=== PATIENT | female | born 2000 | race Hispanic/Latino ===

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

== ENCOUNTER → 2023-09-04 | Emergency (ER) | payer OTHER ==
--- OUTSIDE RECORDS SUMMARY | 2023-09-04 14:47 | XMS REPORT | Continuity of Care Document ---
Author Name Unknown Address [address] [place] [address] [facility]connect Address [address] [place] [address] Care Team Providers Care Custom Ski Maker Name Role Phone Kizzy Gustafson MD Primary Care Physician Unavailable CHETAN MIGUEL Attending Clinician Unavailable FANTA TAYLOR Attending Clinician Unavailab le Doctor Unassigned, [place] Attending Clinician U SOPHIA Moraes Attending Clinician Unavailable Chetan Miguel MD Attending Clinician [phone] Sophia Curtis PA-C Attending Clinician [phone] Pcp, Patient Does Not Have A Attending Clinician Usman Sanchez DO Attending Clinician [phone] Kizzy Gustafson MD Attending Clinician +- [phone] Payers Payer Name Policy Type Policy Number Effective Date Expirati on Date Source [facility] ON 9 [id number] 2023 00:00:00 Problems Condition Name Condition Details Condition Category Status Onset Date Resolution Date Last Treatment Date Treating Clinician Comments Source Obesity (BMI 30-39.9) Obesity (BMI 30-39.9) Disease Active 2018-07 00:00: 00 [facility] No known active problems No known active problems Disease [facility] Allergies, Adverse Reactions, Alerts Allergy Name Allergy Type Status Severity Reaction(s) Onset Date Inactive Date Treating Clinician Comments Source NO KNOWN ALLERGIE S Drug Class Active [facility] Social History Social Habit Start Date Stop Date Quantity Comments Source Gender identity [facility] to SARS-CoV-2 (event) 2023-01-01 00:00:00 2023-01-11 14:07:00 Not sure [facility] History of Social function 2023-01-11 00:00:00 2023-01-11 00:00:00 [facility] Alcohol Comment 2023-01-04 00:00:00 2023-01-04 00:00:00 social [facility] Alcohol intake 2019-05-24 00:00:00 2019-05-24 00:00:00 Current non-drinker of alcohol (finding) [facility] Tobacco use and exposure 2017-12-13 00:00:00 2017-12-13 00:00:00 Smokeless tobacco non-user [facility] Sex Assigned At 2000 00:00:00 2000 00:00:00 [facility] Smoking Status Start Date Stop Date Source Never smoked tobacco [facility] Medications Ordered Medication Name Filled Medication Name Start Date Stop Date Current Medication? Ordering Clinician Indication Dosage Frequency Signature (SIG) Comments Components Source pumpkin seed extract/soy germ (AZO BLADDER CONTROL ORAL) 01-11 17:55: 12 01-11 00:00 :00 No Take by mouth daily. [facility] pumpkin seed extract/soy germ (AZO BLADDER CONTROL ORAL) 01-11 17:55: 12 01-11 00:00 :00 No Take by mouth daily. [facility] pumpkin seed extract/soy germ (AZO BLADDER CONTROL ORAL) 01-11 17:55: 12 01-11 00:00 :00 No Take by mouth daily. [facility] Lactobacill us acidophilus (PROBIOTIC ORAL) 01-04 09:48: 00 Yes Take by mouth. [facility] Lactobacill us acidophilus (PROBIOTIC ORAL) 0 01-04 09:48: 00 Yes Take by mouth. [facility] Lactobacill us acidophilus (PROBIOTIC ORAL) 0 01-04 09:48: 00 Yes Take by mouth. [facility] pumpkin seed extract/soy germ (AZO BLADDER CONTROL ORAL) 0 01-04 09:48: 00 Yes Take by mouth daily. [facility] Lactobacill us acidophilus (PROBIOTIC ORAL) 0 01-04 09:48: 00 Yes Take by mouth. [facility] pumpkin seed extract/soy germ (AZO BLADDER CONTROL ORAL) 0 01-04 09:48: 00 Yes Take by mouth daily. [facility] Lactobacill us acidophilus (PROBIOTIC ORAL) 0 01-04 09:48: 00 Yes Take by mouth. [facility] Lactobacill us acidophilus (PROBIOTIC ORAL) 0 01-04 09:48: 00 Yes Take by mouth. [facility] Lactobacill us acidophilus (PROBIOTIC ORAL) 0 01-04 09:48: 00 Yes Take by mouth. [facility] Lactobacill us acidophilus (PROBIOTIC ORAL) 0 01-04 09:48: 00 Yes Take by mouth. [facility] pumpkin seed extract/soy germ (AZO BLADDER CONTROL ORAL) 2018-07 17:52: 00 Yes Take by mouth daily. [facility] ascorbic acid/vitami n E/biotin (HAIR, SKIN, NAILS WITH BIOTIN ORAL) 2018-07 17:35: 41 Yes Take by mouth. [facility] ascorbic acid/vitami n E/biotin (HAIR, SKIN, NAILS WITH BIOTIN ORAL) 2018-07 11:35: 41 Yes Take by mouth. [facility] ascorbic acid/vitami n E/biotin (HAIR, SKIN, NAILS WITH BIOTIN ORAL) 2018-07 11:35: 41 Yes Take by mouth. [facility] ascorbic acid/vitami n E/biotin (HAIR, SKIN, NAILS WITH BIOTIN ORAL) 2018-07 11:35: 41 Yes Take by mouth. [facility] ascorbic acid/vitami n E/biotin (HAIR, SKIN, NAILS WITH BIOTIN ORAL) 2018-07 11:35: 41 Yes Take by mouth. [facility] ascorbic acid/vitami n E/biotin (HAIR, SKIN, NAILS WITH BIOTIN ORAL) 2018-07 11:35: 41 Yes Take by mouth. [facility] ascorbic acid/vitami n E/biotin (HAIR, SKIN, NAILS WITH BIOTIN ORAL) 2018-07 11:35: 41 Yes Take by mouth. [facility] ascorbic acid/vitami n E/biotin (HAIR, SKIN, NAILS WITH BIOTIN ORAL) 2018-07 11:35: 41 Yes Take by mouth. [facility] ascorbic acid/vitami n E/biotin (HAIR, SKIN, NAILS WITH BIOTIN ORAL) 2018-07 11:35: 41 Yes Take by mouth. [facility] ascorbic acid/vitami n E/biotin (HAIR, SKIN, NAILS WITH BIOTIN ORAL) 2018-07 11:35: 41 Yes Take by mouth. [facility] metroNIDAZO LE 500 mg tablet 11-16 00:00: 00 Yes [id number] 500mg Take 1 tablet by mouth every 12 (twelve) hours. [facility] ascorbic acid/vitami n E/biotin (HAIR, SKIN, NAILS WITH BIOTIN ORAL) 11-15 17:49: 45 Yes Take by mouth. [facility] Immunizations Ordered Immunization Name Filled Immunization Name Date Status Comments Source Influenza Virus Vaccine Quad .5 mL IM 6+ MO 2019-05-24 00:00:00 Completed [facility] Influenza Virus Vaccine Quad .5 mL IM 6+ MO 2019-05-24 00:00:00 Completed [facility] Influenza Virus Vaccine Quad .5 mL IM 6+ MO 2019-05-24 00:00:00 Completed [facility] Influenza Virus Vaccine Quad .5 mL IM 6+ MO 2019-05-24 00:00:00 Completed [facility] Influenza Virus Vaccine Quad .5 mL IM 6+ MO 2019-05-24 00:00:00 Completed [facility] Influenza Virus Vaccine Quad .5 mL IM 6+ MO 2019-05-24 00:00:[address] [facility] 2018-02-14 00:00:00 Completed [place] [address] 2018-02-14 00:00:00 Completed [place] [address] 2018-02-14 00:00:00 Completed [place] [address] 2018-02-14 00:00:00 Completed [place] [address] 2018-02-14 00:00:00 Completed [place] [address] 2018-02-14 00:00:00 Completed [place] [address] 2018-02-14 00:00:00 Completed [facility] Meningococcal Polysaccharide (groups A, C, Y and W-135) conjugate vaccine (MCV4P) 2017-12-13 00:00:00 Completed [place] [address] 2017-12-13 00:00:00 Completed [facility] Meningococcal Polysaccharide (groups A, C, Y and W-135) conjugate vaccine (MCV4P) 2017-12-13 00:00:[address] [facility] 2017-12-13 00:00:00 Completed [facility] Meningococcal Polysaccharide (groups A, C, Y and W-135) conjugate vaccine (MCV4P) 2017-12-13 00:00:[address] [facility] 2017-12-13 00:00:00 Completed [facility] Meningococcal Polysaccharide (groups A, C, Y and W-135) conjugate vaccine (MCV4P) 2017-12-13 00:00:[address] [facility] 2017-12-13 00:00:00 Completed [facility] Meningococcal Polysaccharide (groups A, C, Y and W-135) conjugate vaccine (MCV4P) 2017-12-13 00:00:00 Completed [facility] Meningococcal Polysaccharide (groups A, C, Y and W-135) conjugate vaccine (MCV4P) 2017-12-13 00:00:[address] [facility] 2017-12-13 00:00:00 Completed [place] [address] 2017-12-13 00:00:00 Completed [facility] Meningococcal Polysaccharide (groups A, C, Y and W-135) conjugate vaccine (MCV4P) 2017-12-13 00:00:00 Completed [facility] HPV9 2017-12-13 00:00:00 Completed [facility] Meningococcal Polysaccharide (groups A, C, Y and W-135) conjugate vaccine (MCV4P) Unknown Completed [facility] HPV9 Unknown Completed [facility] HPV9 Unknown Completed [facility] Influenza Virus Vaccine Quad .5 mL IM 6+ MO (FLUZONE/FLULAVAL/FL UARIX) Unknown Completed [facility] Meningococcal Polysaccharide (groups A, C, Y and W-135) conjugate vaccine (MCV4P) Unknown Completed [facility] HPV9 Unknown Completed [facility] HPV9 Unknown Completed [facility] Influenza Virus Vaccine Quad .5 mL IM 6+ MO (FLUZONE/FLULAVAL/FL UARIX) Unknown Completed [facility] Meningococcal Polysaccharide (groups A, C, Y and W-135) conjugate vaccine (MCV4P) Unknown Completed [facility] HPV9 Unknown Completed [facility] HPV9 Unknown Completed [facility] Influenza Virus Vaccine Quad .5 mL IM 6+ MO (FLUZONE/FLULAVAL/FL UARIX) Unknown Completed [facility] Meningococcal Polysaccharide (groups A, C, Y and W-135) conjugate vaccine (MCV4P) Unknown Completed [facility] HPV9 Unknown Completed [facility] HPV9 Unknown Completed [facility] Influenza Virus Vaccine Quad .5 mL IM 6+ MO (FLUZONE/FLULAVAL/FL UARIX) Unknown Completed [facility] Vital Signs Vital Name Observation Time Observation Value Comments S ource Systolic blood pressure 2023-01-11 19:54:00 122 mm[Hg] [facility] Diastolic blood pressure 2023-01-11 19:54:00 69 mm[Hg] [facility] Heart rate 2023-01-11 19:54:00 70 /min [facility] Body temperature 2023-01-11 19:54:00 36.61 Rosalie [facility] Respiratory rate 2023-01-11 19:54:00 18 /min [facility] Body height 2023-01-11 19:54:00 170.2 cm [facility] Body weight 2023-01-11 19:54:00 81.647 kg [facility] BMI 2023-01-11 19:54:00 28.19 kg/m2 [facility] Oxygen saturation in Arterial blood by Pulse oximetry 2023-01-11 19:54:00 98 /min [facility] Body weight 2023-01-04 14:39:00 82.192 kg [facility] BMI 2023-01-04 14:39:00 28.38 kg/m2 [facility] Systolic blood pressure 2023-01-04 14:39:00 111 mm[Hg] [facility] Diastolic blood pressure 2023-01-04 14:39:00 79 mm[Hg] [facility] Heart rate 2023-01-04 14:39:00 71 /min [facility] Body temperature 2023-01-04 14:39:00 36.72 Rosalie [facility] Respiratory rate 2023-01-04 14:39:00 18 /min [facility] Body height 2023-01-04 14:39:00 170.2 cm [facility] Procedures Procedure Date / Time Performed Performing Clinicia n Source DISCLOSURE AND CONSENT, MEDICAL AND SURGICAL PROCEDURES 2023-01-11 05:01:00 Doctor Unassigned, [place] [facility] Encounters Start Date/Time End Date/Time Encounter Type Admission Type Attending Clinicians Care Facility Care Department Encounter ID Source 2023-09-16 15:00:00 2023-09-16 15:00:00 Outpatient FANTA TAYLOR [id number] Eula Smith 2023-02-06 00:00:00 2023-02-06 00:00:00 Patient Secure Msg Doctor Unassigned, [place] [facility] [id number] [id number] [id number] [id number] [facility] [id number] [facility] 2023-01-11 14:30:00 2023-01-11 15:25:28 Outpatient SOPHIA BARAHONA [facility] [id number] [facility] 2023-01-11 14:30:00 2023-01-11 15:25:28 Office Visit Chetan Miguel [facility] [id number] [id number] [id number] [id number] [facility] 2023-01-11 00:00:00 2023-01-11 00:00:00 Orders Only Doctor Unassigned, [place] [facility] [id number] 350.1.13.10 [id number] [id number] [facility] 2023-01-06 00:00:00 2023-01-06 00:00:00 Patient Secure Msg Pcp, Patient Does Not Have A [facility] [id number] 350.1.13.10 4.2.7.2.686 [id number] [facility] 2023-01-06 00:00:00 2023-01-06 00:00:00 Patient Secure Msg Pcp, Patient Does Not Have A [facility] [id number] 350.1.13.10 [id number] [id number] [facility] 2023-01-04 09:30:00 2023-01-04 10:08:25 Outpatient Danny CURTIS SOPHIA [facility] [id number] [facility] 2023-01-04 09:30:00 2023-01-04 10:08:25 Office Visit Sophia Curtis [facility] [id number] 350.1.13.10 4.2.7.2.686 [id number] [facility] 2020-10-01 00:00:00 2020-10-01 00:00:00 Patient Outreach Usman Sanchez [facility] 1.840.114 350.1.13.10 4.2.7.2.686 [id number] [facility] 2020-07-30 00:00:00 2020-07-30 00:00:00 Patient Secure Msg Chetan Miguel [facility] 1.840.114 350.1.13.10 4.2.7.2.686 [id number] [facility] 2019-03-01 00:00:00 2019-03-01 00:00:00 Telephone Kizzy Woodall [facility] 1.840.114 350.1.13.10 4.2.7.2.686 [id number] [facility]
[2023-09-04 16:53] LABS: Hematocrit 36.5 % (36.0-45.0); Platelets 225 thou/uL (152-406); RBC Red Blood Cell Count 3.97 M/uL (3.86-4.86)
--- NOTE | 2023-09-04 16:53 | RAD REPORT ---
EXAM DESCRIPTION: US - Transvaginal OB - 09/04/2023 4:09 pm CLINICAL HISTORY: Abd cramping, ;Vaginal bleeding COMPARISON: No comparisons TECHNIQUE: Sonographic grayscale and color flow images of a first-trimester were obtained through transvaginal approach. FINDINGS: A single live intrauterine is identified. heart rate: 113 BPM. [place]-rump length measures 5.8 millimeters, corresponding to gestational age of 6 weeks, 3 days. Normal yolk sac is visualized. Heterogeneous crescentic hypoechoic collection seen adjacent to the decidual on the left measuring 2. 3 x 2.1 x 0.7 cm. Maternal ovaries are visualized, with a dominant thin-walled anechoic left ovarian cyst measuring 4.0 x 3.0 x 3.7 cm. No other suspicious adnexal. No free fluid. IMPRESSION: 1. Single live intrauterine . 2. Calculated gestational age: 6 weeks, 3 days. Estimated due date by ultrasound: 04/25/2024. 3. Crescentic heterogeneous collection on the left aspect of the decidua, measuring 2.3 cm in greates t dimension, suggestive of a subchorionic hemorrhage. Close clinical follow-up, and short-term sonogr aphic revaluation in 7-10 days are recommended. 4. Probable corpus luteum cyst on the left measuring up to 4 cm.
[2023-09-04 16:54] LABS: Specific Gravity 1.008 (1.005-1.030); Urine Bacteria <20 /HPF (<20); Urine Bilirubin NEGATIVE (Negative); Urine Blood 1+ (Negative); Urine Clarity Extremely Turbid (Clear); Urine Color Colorless (Yellow); Urine Glucose NEGATIVE (Negative); Urine Protein NEGATIVE (Negative); Urine RBC <5 /HPF (None Seen); Urine Urobilinogen Normal (Normal); Urine pH 6.5 (5.0-7.0)
[2023-09-04 17:17] LABS: Potassium 3.6 mEq/L (3.5-5.1)
--- NOTE | 2023-09-04 17:22 | ER ---
Nurse's Notes [facility] Name: Deepa Greer Age: 22 yrs Sex: Female : 2000 Arrival Date: 09/04/2023 Time: 14:44 Bed 8 Private MD: Diagnosis: Threatened ;Subchorionic hemorrhage Presentation: 09/04 14:57 Chief complaint: Patient states: Vaginal bleeding onset Wednesday. Pt states that it cm10 has been light red and bright red at times. Pt states that she is approximately 6 weeks . Pt reports left sided back pain and some abdominal cramping. Coronavirus screen: Vaccine status: Patient reports being unvaccinated. Client denies travel out of the [place] in the last 14 days. Ebola Screen: Patient denies travel to an Ebola-affected area in the 21 days before illness onset. No symptoms or risks identified at this time. Initial Sepsis Screen: Does the patient meet any 2 criteria? No. Patient's initial sepsis screen is negative. Does the patient have a suspected source of infection? No. Patient's initial sepsis screen is negative. Risk Assessment: Do you want to hurt yourself or someone else? Patient reports no desire to harm self or others. Onset of symptoms was September 04, 2023. 14:57 Method Of Arrival: Ambulatory cm10 14:57 Acuity: ROULA 3 cm10 Triage Assessment: 17:50 General: Appears in no apparent distress. Behavior is calm, cooperative, appropriate cp4 for age. 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 - Social history:: Smoking status: Patient/guardian denies using tobacco. Screenin:48 [facility] ED Fall Risk Assessment (Adult) History of falling in the last 3 months, cp4 including since admission No falls in past 3 months (0 pts) Confusion or Disorientation No (0 pts) Intoxicated or Sedated No (0 pts) Impaired Gait No (0 pts) Mobility Assist Device Used No (0 pt) Altered Elimination No (0 pt) Score/Fall Risk Level 0 - 2 = Low Risk Oriented to surroundings, Maintained a safe environment, Educated pt \T\ family on fall prevention, incl call for assistance when getting out of bed, Assessed \T\ reinforced patient's understanding of fall precautions, Hourly rounding (assess needs \T\ fall precautionary measures) done. Abuse screen: Denies threats or abuse. Nutritional screening: No deficits noted. Tuberculosis screening: No symptoms or risk factors identified. Assessment: 16:20 General: Appears comfortable, Behavior is calm, cooperative. Pain: Denies pain. Neuro: aa5 Level of Consciousness is awake, alert, obeys commands, Oriented to person, place, time, situation. Cardiovascular: Patient's skin is warm and dry. Respiratory: Airway is patent Respiratory effort is even, unlabored, Respiratory pattern is regular, symmetrical. GI: Patient currently denies abdominal pain, nausea, vomiting. : No signs and/or symptoms were reported regarding the genitourinary system. Reports vaginal bleeding that is light flow, Denies burning with urination, pain. EENT: No signs and/or symptoms were reported regarding the EENT system. Derm: No signs and/or symptoms reported regarding the dermatologic system. Musculoskeletal: Range of motion: intact in all extremities. 17:48 Obstetrical Assessment: General assessment: awake and alert, skin warm and dry. Pain: cp4 Denies pain. : Denies pain. Vital Signs: 14:57 BP 110 / 65; Pulse 81; Resp 16; Temp 98.2; Pulse Ox 99% on R/A; Weight 86.64 kg (R); cm10 Height 5 ft. 7 in. ; Pain 7/10; 14:57 Body Mass Index 29.91 (86.64 kg, 170.18 cm) cm10 14:57 Pain Scale: Adult cm10 ED Course: 14:47 Patient arrived in ED. mr 14:49 [facility] 14:49 Nathaniel Cohn MD is Attending Physician. [facility] 14:59 Triage completed. cm10 15:00 Arm band placed on Patient placed in an exam room, on a stretcher. cm10 16:11 US Transvaginal Ob In Process Unspecified. EDMS 16:14 Barbi Sidhu, RN is Primary Nurse. aa5 16:43 Initial lab(s) drawn, by ED staff, sent to lab. Inserted saline lock: 20 gauge in right aa5 antecubital area, using aseptic technique. Blood collected. IV inserted by Kayleigh Moss RN. 17:48 Bed in low position. Call light in reach. Side rails up X 1. Provided Education on: cp4 threatened miscarriage. 17:48 No provider procedures requiring assistance completed. cp4 17:48 intact, bleeding controlled, No redness/swelling at site. Pressure dressing applied. cp4 Administered Medications: No medications were administered Medication: 17:48 VIS not applicable for this client. cp4 Outcome: 17:21 Discharge ordered by . dar 17:48 Discharged to home ambulatory, cp4 17:48 Condition: stable 17:48 Discharge instructions given to patient, Instructed on discharge instructions, follow up and referral plans. Demonstrated understanding of instructions, follow-up care, 17:51 Patient left the ED. cp4 Signatures: Dispatcher [employer] EDVT Anika Alcazar, Reg Reg mr Barbi Sidhu, RN RN aa5 Luz Marina Portillo, OIM ARCHITECT OIM ARCHITECT Jessie Meier, RN RN Kayleigh Ni cp4
--- NOTE | 2023-09-04 17:22 | EDPHYS ---
Physician Documentation [facility] Name: Deepa Greer Age: 22 yrs Sex: Female : 2000 Arrival Date: 09/04/2023 Time: 14:44 Bed 8 Private MD: ED Physician Nathaniel Cohn HPI: 09/04 14:50 This 22 yrs old Female presents to ER via Ambulatory with complaints of jh7 Vaginal Bleeding, + Preg <12wks. 14:50 The patient presents to the emergency department with vaginal bleeding, described as jh7 spotting. The estimated gestational age is 6 weeks. Previous pregnancies: the patient has never been . Associated signs and symptoms: The patient has no apparent associated signs or symptoms. 22-year-old female reports spotting for the past 3 days. Denies any other symptoms. She states that she believes she is 6 weeks and 4 days . Has not had a confirmation via ultrasound yet.. 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 - Social history:: Smoking status: Patient/guardian denies using tobacco. ROS: 14:50 Constitutional: Negative for fever, chills, and weight loss, Eyes: Negative for injury, jh7 pain, redness, and discharge, Neck: Negative for injury, pain, and swelling, Cardiovascular: Negative for chest pain, palpitations, and edema, Respiratory: Negative for shortness of breath, cough, wheezing, and pleuritic chest pain, Abdomen/GI: Negative for abdominal pain, nausea, vomiting, diarrhea, and constipation, MS/Extremity: Negative for injury and deformity, Skin: Negative for injury, rash, and discoloration, Neuro: Negative for headache, weakness, numbness, tingling, and seizure, 14:50 : Positive for vaginal bleeding, 14:50 All other systems are negative, Exam: 14:50 Constitutional: This is a well developed, well nourished patient who is awake, alert, jh7 and in no acute distress. Head/Face: Normocephalic, atraumatic. Eyes: Pupils equal round and reactive to light, extra-ocular motions intact. Lids and lashes normal. Conjunctiva and sclera are non-icteric and not injected. Cornea within normal limits. Periorbital areas with no swelling, redness, or edema. Neck: Trachea midline, no thyromegaly or masses palpated, and no cervical lymphadenopathy. Supple, full range of motion without nuchal rigidity, or vertebral point tenderness. No Meningismus. Cardiovascular: Regular rate and rhythm with a normal S1 and S2. No gallops, murmurs, or rubs. Normal PMI, no JVD. No pulse deficits. Respiratory: Lungs have equal breath sounds bilaterally, clear to auscultation and percussion. No rales, rhonchi or wheezes noted. No increased work of breathing, no retractions or nasal flaring. Abdomen/GI: Soft, non-tender, with normal bowel sounds. No distension or tympany. No guarding or rebound. No evidence of tenderness throughout. Skin: Warm, dry with normal turgor. Normal color with no rashes, no lesions, and no evidence of cellulitis. MS/ Extremity: Pulses equal, no cyanosis. Neurovascular intact. Full, normal range of motion. Neuro: Awake and alert, GCS 15, oriented to person, place, time, and situation. Motor strength 5/5 in all extremities. Sensory grossly intact. Cerebellar exam normal. Normal gait. Vital Signs: 14:57 BP 110 / 65; Pulse 81; Resp 16; Temp 98.2; Pulse Ox 99% on R/A; Weight 86.64 kg (R); cm10 Height 5 ft. 7 in. ; Pain 7/10; 14:57 Body Mass Index 29.91 (86.64 kg, 170.18 cm) cm10 14:57 Pain Scale: Adult cm10 MDM: 14:49 Patient medically screened. [facility] 17:20 Differential diagnosis: threatened Ab, Subchorionic hemorrhage, ectopic . Data [facility] reviewed: vital signs, nurses notes, lab test result(s), radiologic studies, ultrasound. Counseling: I had a detailed discussion with the patient and/or guardian regarding the historical points, exam findings, and any diagnostic results supporting the discharge/admit diagnosis, the need for outpatient follow up, an OB/Gyne specialist, to return to the emergency department if symptoms worsen or persist or if there are any questions or concerns that arise at home. 09/04 14:56 Order name: Basic Metabolic Panel [facility] 09/04 14:56 Order name: CBC with Diff; Complete Time: 17:18 [facility] 09/04 14:56 Order name: Quantitative Hcg [facility] 09/04 14:56 Order name: Urinalysis w/ reflexes; Complete Time: 17:18 [facility] 09/04 14:56 Order name: US Transvaginal Ob; Complete Time: 16:54 [facility] 09/04 14:56 Order name: IV Saline Lock; Complete Time: 16:44 [facility] 09/04 14:56 Order name: Labs collected and sent; Complete Time: 16:44 [facility] 09/04 14:56 Order name: NPO; Complete Time: 16:44 [facility] Administered Medications: No medications were administered Disposition: 19:19 Co-signature as Attending Physician, Nathaniel Cohn MD I agree with the assessment and kdr plan of care. Disposition Summary: 09/04/23 17:21 Discharge Ordered Notes: Location: Home [facility] Problem: new [facility] Symptoms: are unchanged [facility] Condition: Stable [facility] Diagnosis - Threatened [facility] - Subchorionic hemorrhage [facility] Followup: [facility] - With: Private Physician - When: 2 - 3 days - Reason: Recheck today's complaints Discharge Instructions: - Discharge Summary Sheet [facility] - Threatened Miscarriage [facility] - Vaginal Bleeding During , First Trimester [facility] - Subchorionic Hematoma [facility] Forms: - Medication Reconciliation Form [facility] - Thank You Letter [facility] - Patient Portal Instructions [facility] - Leadership Thank You Letter [facility] Signatures: Dispatcher [employer] Nathaniel Martinez MD MD kdr Hadash, Jennifer, FNP CLOTH LAMINATING SUPERVISOR [facility] Jessie Celis RN RN cm10 Corrections: (The following items were deleted from the chart) 16:44 14:57 ABO/RH TYPING+[id number] ordered. [facility] 17:24 17:20 Counseling: I had a detailed discussion with the patient and/or guardian [facility] regarding the historical points, exam findings, and any diagnostic results supporting the discharge/admit diagnosis, the need for outpatient follow up, an OB/Gyne specialist, to return to the emergency department if symptoms worsen or persist or if there are any questions or concerns that arise at home, 7
[2023-09-04 18:02] VITALS: BP 110/65; TEMP 98.2; O2SAT 99
== END ==
LOC: ER 14:44
DX: O20.0 Threatened abortion (principal); O41.8X20 Other specified disorders of amniotic fluid and membranes, second trimester, not applicable or unspecified; Z3A.01 Less than 8 weeks gestation of pregnancy
CPT/HCPCS: 36415; 76817; 80048; 81001; 84702; 85025; 99283